=== PATIENT | male | born 1980 | race Caucasian/White ===

== ENCOUNTER 2024-05-05 14:39 | Emergency (ER) | payer OTHER, SELFPAY ==
[2024-05-05 14:52] VITALS: BP 149/105; PULSE 90; RESP 18; TEMP 36.8; O2SAT 99; BMI 29.6
--- NOTE | 2024-05-05 15:06 | CRLHL7_ITS ---
For Patients: As a result of the Century Cures Act, medical imaging exams and procedure reports are released immediately into your electronic medical record. You may view this report before your referring provider. If you have questions, please contact your health care provider. INDICATION: Left testicular pain. TECHNIQUE: Axial noncontrast CT cuts were performed from above the diaphragm to below the ischial tuberosities. FINDINGS: There is a 5 mm nonobstructive calculus near the lower pole of the right kidney. There is a 2 mm nonobstructing calculus within the left mid kidney. There are no ureteral or bladder calculi. There is no hydronephrosis. The prostate gland and seminal vesicles appear normal. The scrotum has been included on the scan. The testicles appear normal. The liver, spleen, pancreas and adrenal glands appear normal. There is no free intraperitoneal air or fluid. The colon and small bowel appear normal. There is a suture chain at the base the cecum consistent with a prior appendectomy. There are no nodules or masses at the lung bases. There no lytic or sclerotic skeletal lesions. IMPRESSION: 1. Each kidney contains a nonobstructing calculus. No ureteral or bladder calculi are identified. 2. Grossly normal-appearing testicles by CT. Consider scrotal sonography in the setting of testicular pain. Please note that all CT scans at this facility use dose modulation, iterative reconstruction, and/or weight-based dosing when appropriate to reduce radiation dose to as low as reasonably achievable. Dictated by Shaun Boothe MD @ 05/05/2024 4:12:08 PM (Electronically Signed)
--- NOTE | 2024-05-05 15:07 | ED.GENADULT ---
HPI - General Adult General Chief complaint: Urogenital Problems, Male Stated complaint: Kidney stone pain moved south Time Seen by Provider: 05/05/24 15:01 History of Present Illness HPI narrative: This 44-year-old male comes in reporting left testicular pain. He states that he had some twinges of pain starting about 5 days ago and then developed more pain in his groin. He does have a history of kidney stones. He does not report any symptoms of dysuria. He states that he did have some nausea with vomiting. Related Data Home Medications ?Medication ?Instructions ?Recorded ?Confirmed No Known Home Medications 05/05/24 05/05/24 Allergies Allergy/AdvReac Type Severity Reaction Status Date / Time No Known Drug Allergies Allergy Verified 05/05/24 14:51 Review of Systems Status of ROS: Reports: 10 or more systems reviewed and unremarkable except as noted in History and below Narrative: Constitutional: No fevers, no weight gain or loss. Eyes: No discharge. No vision changes. HENT: No congestion, no sore throat, no ear pain. Cardiovascular: No chest pain, no palpitations. Respiratory: No shortness of breath, no wheezes, no cough. Gastrointestinal: No diarrhea. Lower abdominal pain radiating into his left text ago. Nausea with vomiting. Genitourinary: No dysuria, no hematuria. Musculoskeletal: Normal range of motion. Skin: No rashes, no pruritis. Neurological: No dizziness, weakness, sensory change, speech change. Endo/Heme/Allergies: No bruising or bleeding. No polydipsia. Pysch: no suicidality, no anxiety, no insomnia. All other systems reviewed and are negative. PFSH PFS Social History Smoking Status: Unknown if ever smoked How often do you have a drink containing alcohol: never AUDIT-C Alcohol total score: 0 Non-prescribed substance use: denies use Exam Narrative: Exam Narrative: Constitutional: Well-developed, well-nourished, no acute distress. HEENT: Normocephalic, atraumatic. Neck: Normal range of motion. Nontender. Supple. Heart: Regular. No murmurs. Normal rate. Intact distal pulses. Lungs: Clear to auscultation. No chest discomfort. No wheezes, rhonchi, or rales. Abdomen: Normal bowel sounds. No rebound tenderness. Genitalia: Deferred. Back: No midline tenderness. Normal range of motion. Extremities: Normal range of motion. No injury. Skin: Intact. No rash. Warm. No erythema or pallor. Neurologic: No altered sensation. No weakness. Alert and oriented. Psychiatric: No suicidality. No anxiety or depression. No insomnia. Nursing notes and vitals signs are reviewed. Const: Vital Signs, click to edit/add: Vital Signs - 24 hr 05/05/24 14:52 Temperature 98.2 F Pulse Rate [Pulse Oximeter] 90 Respiratory Rate 18 Blood Pressure [Ri ght Upper Arm] 149/105 H Pulse Oximetry 99 Oxygen Delivery Me thod Room Air Course Vital Signs Vital signs: Initial Vital Signs Temperature 98.2 F 05/05/24 14:52 Temperature Source Temporal Artery Scan 05/05/24 14:52 Pulse Rate 90 05/05/24 14:52 Pulse Rhythm Regular 05/05/24 14:52 Respiratory Rate 18 05/05/24 14:52 Blood Pressure 149/105 H 05/05/24 14:52 Blood Pressure Mean 119 H 05/05/24 14:52 Blood Pressure Position Sitting 05/05/24 14:52 Pulse Oximetry 99 05/05/24 14:52 Oxygen Delivery Method Room Air 05/05/24 14:52 Vital Signs Temperature 98.2 F 05/05/24 14:52 Pulse Rate 90 05/05/24 14:52 Respiratory Rate 18 05/05/24 14:52 Blood Pressure 149/105 H 05/05/24 14:52 Pulse Oximetry 99 05/05/24 14:52 Oxygen Delivery Method Room Air 05/05/24 14:52 Temperature 98.2 F 05/05/24 14:52 Pulse Rate 90 05/05/24 14:52 Respiratory Rate 18 05/05/24 14:52 Blood Pressure 149/105 H 05/05/24 14:52 Pulse Oximetry 99 05/05/24 14:52 Oxygen Delivery Method Room Air 05/05/24 14:52 Medications Administered Medications: Discontinued Medications Generic Name Dose Route Start Last Admin Trade Name Freq PRN Reason Stop Dose Admin Hydromorphone HCl 0.5 mg 05/05/24 15:06 05/05/24 15:22 Hydromorphone 0.5 Mg/0.5 Ml Inj IVP 05/05/24 15:07 0.5 mg ONCE ONE Administration Ketorolac Tromethamine 30 mg 05/05/24 15:06 05/05/24 15:22 Ketorolac 30 Mg/Ml Inj IVP 05/05/24 15:07 30 mg ONCE ONE Administration Ondansetron HCl 4 mg 05/05/24 15:05/05/24 15:22 Ondansetron 2 Mg/Ml Inj IVP 05/05/24 15:07 4 mg ONCE ONE Administration Medical Decision Making MDM Narrative Medical decision making narrative: This patient is complaining of significant pain into his testicles, left greater than right. An IV was established where he did receive Toradol 30 mg, Dilaudid 0.5 mg, and Zofran 4 mg. This brought relief to his symptoms. CT imaging does show some small stones up in the kidneys but nothing along the ureters or in the bladder to explain testicular pain. The CT scan does extend down to include his testicles and scrotum and this appears normal. The patient now is going to provide urine for urinalysis and I ordered a ultrasound of the scrotum. Results of these tests are pending at the end of my shift and care for this patient is turned over to Dr. Gibson. Imaging Data CT scan - abdomen: Radiologist's impression: FINDINGS: There is a 5 mm nonobstructive calculus near the lower pole of the right kidney. There is a 2 mm nonobstructing calculus within the left mid kidney. There are no ureteral or bladder calculi. There is no hydronephrosis. The prostate gland and seminal vesicles appear normal. The scrotum has been included on the scan. The testicles appear normal. The liver, spleen, pancreas and adrenal glands appear normal. There is no free intraperitoneal air or fluid. The colon and small bowel appear normal. There is a suture chain at the base the cecum consistent with a prior appendectomy. There are no nodules or masses at the lung bases. There no lytic or sclerotic skeletal lesions. IMPRESSION: 1. Each kidney contains a nonobstructing calculus. No ureteral or bladder calculi are identified. 2. Grossly normal-appearing testicles by CT. Consider scrotal sonography in the setting of testicular pain. Discharge Plan Discharge Clinical Impression: Pain in both testicles Prescriptions: No Action No Known Home Medications Follow Up/Referrals: Tracy Hurtado [Primary Care Provider] -
[2024-05-05] MEDS: ONDANSETRON 2 MG/ML inj 4 MG IVP (15:22)
[2024-05-05] MEDS: HYDROmorphone 0.5 mg/0.5 ml inj IVP (15:22)
[2024-05-05] MEDS: KETOROLAC 30 MG/ML inj IVP (15:22)
--- NOTE | 2024-05-05 16:21 | CRLHL7_ITS ---
For Patients: As a result of the Cures Act, medical imaging exams and procedure reports are released immediately into your electronic medical record. You may view this report before your referring provider. If you have questions, please contact your health care provider. INDICATION: Testicular pain. Comparison : CT scan of the abdomen and pelvis dated 05 May 2024. FINDINGS: A scrotal ultrasound shows normal size, contour, and echogenicity of the testicles with right testicle measuring 5.3 x 3.3 x 2.2 cm and the left testicle measuring 5.4 x 3.2 x 2.0 cm. Color and spectral Doppler analysis shows normal arterial and venous blood flow to both testicles. Normal appearance of the epididymides. Impression : 1. No abnormalities of the testicles or epididymides identified. Dictated by Edwin Gonzalez MD @ 05/05/2024 5:23:44 PM Dictated by: Edwin Gonzalez MD @ 05/05/2024 17:23:53 (Electronically Signed)
[2024-05-05 16:41] LABS: Appearance Urine Clear (Clear); Bilirubin Urine Negative (Negative); Blood Urine Trace-intact (Negative); Color Urine Yellow (Yellow); Glucose Urine Negative (Negative); Ketones Urine Trace (Negative); Leukocyte Esterase Urine Negative (Negative); Nitrite Urine Negative (Negative); Protein Urine Negative (Negative); Specific Gravity Urine 1.025 (1.000-1.030); Urobilinogen Urine 0.2 (0.2-1.0)
[2024-05-05 16:50] LABS: RBC Urine 0-2 (0-2); WBC Urine 0-2 (0-5)
== END 2024-05-05 17:16 | disposition home or self-care (01) ==
PROVIDERS: Emergency Medicine Emergency Medical Services; Emergency Provider Family Medicine
DX: N50.812 Left testicular pain (principal); N50.811 Right testicular pain
CPT/HCPCS: 74176; 76870; 81001; 93976; 96374; 96375; 99283; 99284; 99285; J1170; J1885; J2405